=== PATIENT | male | born 1955 | race Caucasian/White ===

== ENCOUNTER → 2022-04-11 10:44 | Outpatient (CLI) | payer MEDICARE, SELFPAY ==
--- NOTE | 2022-04-11 10:44 | MR_ITS ---
FINAL REPORT CLINICAL HISTORY: Transient alteration of awareness seizure in january 2022 memory issues and brain fog FINDINGS: Multiplanar MR imaging of the brain was performed without contrast. There is mild age-appropriate atrophy. There are scattered foci of increased T2 signal in the cerebral white matter that have a nonspecific appearance but likely represent moderate chronic ischemic/gliotic changes. There is no evidence of intracranial hemorrhage or mass. No abnormal ventricular dilatation is identified. No abnormal extra-axial fluid collection is seen. No abnormality is seen on the diffusion weighted images. The posterior fossa and brainstem are unremarkable. Normal major vessel vascular flow voids are seen. There are retention cysts or polyps in the maxillary sinuses. IMPRESSION: Age-appropriate atrophy and moderate chronic ischemic/gliotic changes. No acute intracranial abnormality. Reviewed, Interpreted and Dictated by Eldon Lopez III, MD Transcribed by Tara Humphrey Authenticated and [facility]
== END ==
PROVIDERS: PCP Specialist; Visit Provider Specialist
DX: R40.4 Transient alteration of awareness (principal)
CPT/HCPCS: 70551